=== PATIENT | male | born 1965 | race American Indian/Alaskan Native ===

== ENCOUNTER 2019-05-26 10:21 | Day surgery (SDC) | payer OTHER ==
[2019-05-26] MEDS ORDERED: NACL 0.9% 1000 ML 1,000 ML IV SCH (11:00)
[2019-05-26] MEDS ORDERED: XYLOCAINE MPF 2% ONE (12:00)
[2019-05-26] MEDS ORDERED: WATER FOR IRRIG STERILE IR ONE (12:10)
[2019-05-26] MEDS ORDERED: VERSED ONE (12:20)
[2019-05-26] MEDS ORDERED: DIPRIVAN 10 MG/ML IV ONE ×2 (12:20)
--- NOTE | 2019-05-26 12:50 | Procedure Note ---
Date of procedure: 05/26/19 Pre-op diagnosis: Colon Polyp Screening Post-op diagnosis: other (Solitary,Small Ascending Colon Polyp/Few,Scattered Diverticular Disease/ Mild to Moderate Internal Hemorrhoid) Procedure: Colonoscopy with Biopsy Anesthesia: MAC Surgeon: SANJUANITA RIGGINS Estimated blood loss: minimal Pathology: list Specimen disposition: to lab Condition: stable Disposition: same day (Avoid aspirin and NSAID for 5 days. Follow up in 1 to 2 weeks ([phone]).)
[2019-05-26 13:06] VITALS: BP 132/82
--- NOTE | 2019-05-26 14:44 | Anesthesia Day of Surgery ---
Anesthesia Day of Surgery - Day of Surgery Patient Examined: Yes Patient H&P Reviewed: Yes Patient is NPO: Yes
--- NOTE | 2019-05-26 14:45 | Anesthesia Consultation ---
Anesthesia Consult and Med Hx Date of service: 05/26/19 - Airway Anesthetic Teeth Evaluation: Good ROM Head & Neck: Adequate Mental/Hyoid Distance: Adequate Mallampati Class: Class II Intubation Access Assessment: Probably Good - Pre-Operative Health Status ASA Pre-Surgery Classification: ASA3 - Pulmonary Hx Smoking: Yes (quit 10 yrs ago) - Cardiovascular System Hx Hypertension: Yes
--- NOTE | 2019-05-26 16:56 | Operative Report ---
INDICATIONS: This is a 53-year-old -[place] gentleman who has a family history of cancer. Colonoscopy was done as part of colon polyp screening. DESCRIPTION OF PROCEDURE: Procedure was done after getting informed consent with MAC anesthesia. Initial rectal exam was unremarkable. Instrument was passed through the rectum onto the cecum, which was identified with ileocecal valve and the appendiceal orifice. Visualization was fair. The cecum showed normal mucosa. In the ascending colon, there was a solitary 8 mm polyp noted that was removed by cold biopsy. There was minimal bleeding associated with the polypectomy. The remaining part of the ascending colon, transverse colon showed normal mucosa. There were a few minor scattered diverticula noted in the distal transverse and the descending colon. The sigmoid appeared normal and the rectum showed mild to moderate internal hemorrhoids on the retroverted view. ASSESSMENT: Colon polyp screening, solitary ascending colon polyp, few scattered diverticula, mild to moderate internal hemorrhoid. There was minimal bleeding from the biopsy sites. No complications associated with the procedure. The patient will be asked to avoid aspirin and aspirin-related products for the next few days. Encouraged to take fiber supplements and follow up in the office in 1-2 weeks' time. The procedure was done in the GI lab with the assistance of anesthesia and assistance and presence of STEFANIE Bañuelos and Oly pugh. JOB# [id number] SUJIT/CHRISTOPH
== END 2019-05-26 13:23 | disposition home or self-care (01) ==
LOC: GIO 10:21
DX: Z12.11 Encounter for screening for malignant neoplasm of colon (principal); K63.5 Polyp of colon; K57.30 Diverticulosis of large intestine without perforation or abscess without bleeding; K64.8 Other hemorrhoids; I10 Essential (primary) hypertension; Z79.899 Other long term (current) drug therapy; Z91.013 Allergy to seafood; Z87.891 Personal history of nicotine dependence; Z80.0 Family history of malignant neoplasm of digestive organs
CPT/HCPCS: 45380; 88305; J2250; J2704